=== PATIENT | female | born 1960 | race Caucasian/White ===

== ENCOUNTER 2018-06-03 12:42 | Inpatient (IN) | payer MEDICARE, OTHER ==
[~2018-06-03] VITALS: Ht 167.6 cm; Wt 83.0 kg
[2018-06-03] MEDS ORDERED: HYDROMORPHONE INJ 2 MG/ML DISP.SYRIN IV ONE (13:30)
[2018-06-03 13:32] LABS: BASOPHILS % (AUTO) 0.1 % (0.0-2.0); EOSINOPHILS % (AUTO) 0.1 % (0.0-6.0); HEMATOCRIT 26 % (33-45); HEMOGLOBIN 8.4 g/dL (11.5-14.8); LYMPHOCYTES # (AUTO) 0.8 /CMM (0.8-4.8); LYMPHOCYTES % (AUTO) 3.2 % (20.0-44.0); MEAN CORPUSCULAR HGB CONC 32 g/dl (31.0-36.0); MEAN CORPUSCULAR VOLUME 103 fL (82-100); MONOCYTES # (AUTO) 1.3 /CMM (0.1-1.30); MONOCYTES % (AUTO) 4.8 % (2.0-12.0); NEUTROPHILS # (AUTO) 24.3 /CMM (1.8-8.9); NEUTROPHILS % (AUTO) 91.8 % (43.0-81.0); PLATELET COUNT (AUTO) 274 /CMM (150-450); RED BLOOD CELL COUNT(AUTO) 2.52 MIL/uL (4.0-5.2); WHITE BLOOD COUNT (AUTO) 26.4 K/uL (4.3-11.0)
[2018-06-03] MEDS ORDERED: HYDROMORPHONE 1 MG/1 ML DISP.SYRIN ONE (13:35)
[2018-06-03 13:47] LABS: CALCIUM, SERUM 8.7 mg/dL (8.5-10.1); CREATININE 3.8 mg/dL (0.6-1.3); POTASSIUM 4.7 mmol/L (3.5-5.1)
[2018-06-03 13:58] LABS: BILIRUBIN,DIRECT 0.3 mg/dL (0.0-0.2); BILIRUBIN,TOTAL 0.7 mg/dL (0.2-1.0); TOTAL PROTEIN, SERUM 6.8 g/dL (6.4-8.2)
[2018-06-03] MEDS ORDERED: VANCOMYCIN 1 GM in IV D5W 250 ML IV ONE (14:30)
[2018-06-03 15:05] LABS: APPEARANCE,URINE Cloudy (CLEAR); BILIRUBIN,URINE Negative (NEGATIVE); BLOOD, URINE Small Ery/uL (NEGATIVE); COLOR,URINE Yellow (YELLOW); KETONES,URINE Negative (NEGATIVE); LEUKOCYTE ESTERASE ,URINE Large (NEGATIVE); NITRITE, URINE Negative (NEGATIVE); PROTEIN,URINE 100 mg/dl (NEGATIVE); UGLUCOSE Negative (NEGATIVE); UROBILINOGEN,URINE 0.2 EU/dL (0.2)
[2018-06-03 15:17] LABS: BACTERIA,URINE Moderate /HPF (None Seen); SQUAMOUS EPITHELIAL CELL,UR Few /HPF (None Seen); WBC,URINE 21-50 /HPF (0-3)
[2018-06-03 16:01] LABS: BAND % (MANUAL) 2 % (0.0-5.0); LYMPHOCYTES % (MANUAL) 4 % (16-48); METAMYELOCYTES % 1 % (0-0); MONOCYTES % (MANUAL) 7 % (0-11.0); MYELOCYTES % 1 % (0-0); NEUTROPHILS % (MANUAL) 85 (42-76)
[2018-06-03] MEDS ORDERED: DIVA-78 PO (16:41)
[2018-06-03] MEDS ORDERED: ESOM40CA PO (16:41)
[2018-06-03] MEDS ORDERED: ALLO100T PO (16:41)
[2018-06-03] MEDS ORDERED: CLON0.5T12 PO (16:41)
[2018-06-03] MEDS ORDERED: BUME1TAB4 PO (16:41)
[2018-06-03] MEDS ORDERED: HYDR-4354 PO (16:41)
[2018-06-03] MEDS ORDERED: BENZ1TAB7 PO (16:41)
[2018-06-03] MEDS ORDERED: CHOL50004 PO (16:41)
[2018-06-03] MEDS ORDERED: OLAN10TA3 PO (16:41)
[2018-06-03] MEDS ORDERED: SERT50TA PO (16:41)
[2018-06-03] MEDS ORDERED: HYDR-4076 PO (16:41)
[2018-06-03] MEDS ORDERED: ZOLP5TAB8 PO (16:41)
[2018-06-03] MEDS ORDERED: FOLI1TAB16 PO (16:41)
[2018-06-03] MEDS: hydrALAZINE HCL 25 MG TABLET PO SCH (17:00)
[2018-06-03] MEDS ORDERED: LEVOFLOXACIN 500 MG /D5W 100ML 500 MG in PREMIX 1 EA IV ONE (17:00)
[2018-06-03 17:45] VITALS: BP 118/60
[2018-06-03 18:00] VITALS: BP 119/61
[2018-06-03] MEDS: BUMETANIDE (1 MG) 1 MG TABLET PO SCH (18:18)
[2018-06-03] MEDS: BENZTROPINE MESYLATE (1 MG) 1 MG TABLET PO SCH (18:18)
[2018-06-03] MEDS: DIVALPROEX SODIUM 500 MG TABLET.DR PO SCH (18:19)
[2018-06-03 20:00] VITALS: BP 102/60
[2018-06-03] MEDS: OLANZAPINE 10 MG TABLET PO SCH (21:01)
[2018-06-03] MEDS: ENOXAPARIN SODIUM 30 MG/0.3 ML DISP.SYRIN SQ SCH (21:03)
[2018-06-03] MEDS: ZOLPIDEM TARTRATE 5 MG TABLET PO SCH (22:00)
[2018-06-03] MEDS: ONDANSETRON HCL/PF 4 MG/2 ML VIAL IVP PRN (22:14)
[2018-06-03] MEDS: ACETAMINOPHEN 325 MG TABLET PO PRN (22:55)
[2018-06-04] VITALS (9 sets, daily range): BP systolic 96–117; BP diastolic 53–66
[2018-06-04] MEDS: ACETAMINOPHEN 325 MG TABLET PO PRN (04:56)
[2018-06-04] MEDS: ONDANSETRON HCL/PF 4 MG/2 ML VIAL IVP PRN ×3 (06:00→22:12)
[2018-06-04 06:08] LABS: BASOPHILS % (AUTO) 0.1 % (0.0-2.0); EOSINOPHILS % (AUTO) 0.1 % (0.0-6.0); HEMATOCRIT 21 % (33-45); LYMPHOCYTES # (AUTO) 1.1 /CMM (0.8-4.8); MEAN CORPUSCULAR HGB CONC 32 g/dl (31.0-36.0); MEAN CORPUSCULAR VOLUME 103 fL (82-100); MONOCYTES % (AUTO) 7.1 % (2.0-12.0); NEUTROPHILS # (AUTO) 25.4 /CMM (1.8-8.9); NEUTROPHILS % (AUTO) 88.7 % (43.0-81.0); PLATELET COUNT (AUTO) 215 /CMM (150-450); RED BLOOD CELL COUNT(AUTO) 2.07 MIL/uL (4.0-5.2); WHITE BLOOD COUNT (AUTO) 28.5 K/uL (4.3-11.0)
[2018-06-04 06:14] LABS: HEMOGLOBIN 6.8 g/dL (11.5-14.8)
[2018-06-04 06:55] LABS: CALCIUM, SERUM 8.2 mg/dL (8.5-10.1); CREATININE 3.9 mg/dL (0.6-1.3); POTASSIUM 4.9 mmol/L (3.5-5.1)
[2018-06-04 07:34] LABS: BAND % (MANUAL) 3 % (0.0-5.0); LYMPHOCYTES % (MANUAL) 9 % (16-48); MONOCYTES % (MANUAL) 9 % (0-11.0); NEUTROPHILS % (MANUAL) 79 (42-76)
[2018-06-04] MEDS: hydrALAZINE HCL 25 MG TABLET PO SCH ×2 (09:00→17:00)
[2018-06-04] MEDS: BUMETANIDE (1 MG) 1 MG TABLET PO SCH ×2 (10:11→17:00)
[2018-06-04] MEDS: FOLIC ACID 1 MG TABLET PO SCH (10:11)
[2018-06-04] MEDS: OLANZAPINE 10 MG TABLET PO SCH ×2 (10:11→20:33)
[2018-06-04] MEDS: BENZTROPINE MESYLATE (1 MG) 1 MG TABLET PO SCH ×2 (10:11→17:00)
[2018-06-04] MEDS: ALLOPURINOL 100 MG TABLET PO SCH (10:11)
[2018-06-04] MEDS: DIVALPROEX SODIUM 500 MG TABLET.DR PO SCH ×2 (10:11→17:00)
[2018-06-04] MEDS: SERTRALINE HCL 50 MG TABLET PO SCH (10:14)
[2018-06-04] MEDS ORDERED: Z GUARD REMEDY 2 OZ OINT TP PRN (10:30)
[2018-06-04] MEDS ORDERED: EPOETIN ALFA (10,000 UNIT) 10,000 UNIT/ML VIAL IV ONE (15:00)
[2018-06-04] MEDS: HYDROCODONE/APAP 10/325MG 1 EA TABLET PO PRN ×2 (16:52→20:32)
[2018-06-04] MEDS: Z GUARD REMEDY 2 OZ OINT TP SCH (19:49)
[2018-06-04] MEDS: ENOXAPARIN SODIUM 30 MG/0.3 ML DISP.SYRIN SQ SCH (20:42)
[2018-06-04] MEDS: ZOLPIDEM TARTRATE 5 MG TABLET PO SCH (22:13)
[2018-06-04] MEDS: GUAIFENESIN/D-METHORPHAN HB 5 ML UDC PO PRN (23:03)
[2018-06-05] MEDS: clonazePAM 0.5 MG TABLET PO PRN (02:04)
[2018-06-05] MEDS: HYDROCODONE/APAP 10/325MG 1 EA TABLET PO PRN ×2 (02:19→19:50)
[2018-06-05] MEDS: MINERAL OIL/PETROLATUM,WHITE 120 GM JAR TP PRN ×2 (02:24→05:36)
[2018-06-05] MEDS: GUAIFENESIN/D-METHORPHAN HB 5 ML UDC PO PRN ×2 (05:49→19:51)
[2018-06-05 07:11] LABS: BASOPHILS % (AUTO) 0.1 % (0.0-2.0); EOSINOPHILS % (AUTO) 0.1 % (0.0-6.0); HEMATOCRIT 26 % (33-45); HEMOGLOBIN 8.6 g/dL (11.5-14.8); LYMPHOCYTES # (AUTO) 1.2 /CMM (0.8-4.8); LYMPHOCYTES % (AUTO) 4.4 % (20.0-44.0); MEAN CORPUSCULAR HGB CONC 33 g/dl (31.0-36.0); MEAN CORPUSCULAR VOLUME 96 fL (82-100); MONOCYTES # (AUTO) 1.7 /CMM (0.1-1.30); MONOCYTES % (AUTO) 6.2 % (2.0-12.0); NEUTROPHILS # (AUTO) 24.6 /CMM (1.8-8.9); NEUTROPHILS % (AUTO) 89.2 % (43.0-81.0); PLATELET COUNT (AUTO) 206 /CMM (150-450); RED BLOOD CELL COUNT(AUTO) 2.72 MIL/uL (4.0-5.2); WHITE BLOOD COUNT (AUTO) 27.6 K/uL (4.3-11.0)
[2018-06-05 07:51] LABS: CALCIUM, SERUM 8.1 mg/dL (8.5-10.1); CREATININE 3.2 mg/dL (0.6-1.3); MAGNESIUM 1.6 mg/dL (1.8-2.4); POTASSIUM 4.7 mmol/L (3.5-5.1)
[2018-06-05 07:59] LABS: BAND % (MANUAL) 5 % (0.0-5.0); LYMPHOCYTES % (MANUAL) 2 % (16-48); MONOCYTES % (MANUAL) 7 % (0-11.0); NEUTROPHILS % (MANUAL) 86 (42-76)
[2018-06-05] MEDS: ALLOPURINOL 100 MG TABLET PO SCH (09:00)
[2018-06-05] MEDS: DIVALPROEX SODIUM 500 MG TABLET.DR PO SCH ×2 (09:00→18:27)
[2018-06-05] MEDS: OLANZAPINE 10 MG TABLET PO SCH ×2 (09:00→20:52)
[2018-06-05] MEDS: BENZTROPINE MESYLATE (1 MG) 1 MG TABLET PO SCH ×2 (09:00→18:27)
[2018-06-05] MEDS: hydrALAZINE HCL 25 MG TABLET PO SCH ×2 (09:00→18:28)
[2018-06-05] MEDS: BUMETANIDE (1 MG) 1 MG TABLET PO SCH ×2 (09:00→18:28)
[2018-06-05] MEDS: FOLIC ACID 1 MG TABLET PO SCH (09:00)
[2018-06-05] MEDS: Z GUARD REMEDY 2 OZ OINT TP SCH (09:00)
[2018-06-05] MEDS: SERTRALINE HCL 50 MG TABLET PO SCH (09:00)
[2018-06-05] MEDS ORDERED: LEVOFLOXACIN 250 MG /D5W 50 ML 250 MG in PREMIX 1 EA IV SCH (17:00)
[2018-06-05] MEDS: CEFTRIAXONE 1 G in IV D5W 50 ML IV SCH (18:28)
[2018-06-05 20:00] VITALS: BP 108/56
[2018-06-05 20:48] VITALS: BP 108/56
[2018-06-05] MEDS: ENOXAPARIN SODIUM 30 MG/0.3 ML DISP.SYRIN SQ SCH (20:53)
[2018-06-05] MEDS: ZOLPIDEM TARTRATE 5 MG TABLET PO SCH (22:12)
[2018-06-06] MEDS: ONDANSETRON HCL/PF 4 MG/2 ML VIAL IVP PRN (04:58)
[2018-06-06] MEDS: HYDROCODONE/APAP 10/325MG 1 EA TABLET PO PRN ×3 (05:12→19:03)
[2018-06-06 07:04] LABS: CALCIUM, SERUM 8.3 mg/dL (8.5-10.1); CREATININE 3.4 mg/dL (0.6-1.3); MAGNESIUM 1.5 mg/dL (1.8-2.4); POTASSIUM 5.1 mmol/L (3.5-5.1)
[2018-06-06 07:07] LABS: BASOPHILS % (AUTO) 0.2 % (0.0-2.0); EOSINOPHILS % (AUTO) 0.1 % (0.0-6.0); HEMATOCRIT 25 % (33-45); HEMOGLOBIN 8.3 g/dL (11.5-14.8); LYMPHOCYTES # (AUTO) 0.9 /CMM (0.8-4.8); LYMPHOCYTES % (AUTO) 3.5 % (20.0-44.0); MEAN CORPUSCULAR HGB CONC 33 g/dl (31.0-36.0); MEAN CORPUSCULAR VOLUME 96 fL (82-100); MONOCYTES # (AUTO) 1.6 /CMM (0.1-1.30); MONOCYTES % (AUTO) 6.3 % (2.0-12.0); NEUTROPHILS # (AUTO) 22.7 /CMM (1.8-8.9); NEUTROPHILS % (AUTO) 89.9 % (43.0-81.0); PLATELET COUNT (AUTO) 210 /CMM (150-450); WHITE BLOOD COUNT (AUTO) 25.3 K/uL (4.3-11.0)
[2018-06-06 08:08] LABS: BAND % (MANUAL) 3 % (0.0-5.0); LYMPHOCYTES % (MANUAL) 8 % (16-48); MONOCYTES % (MANUAL) 10 % (0-11.0); NEUTROPHILS % (MANUAL) 79 (42-76)
[2018-06-06] MEDS: hydrALAZINE HCL 25 MG TABLET PO SCH ×2 (09:00→17:00)
[2018-06-06] MEDS: BENZTROPINE MESYLATE (1 MG) 1 MG TABLET PO SCH ×2 (10:30→17:52)
[2018-06-06] MEDS: FOLIC ACID 1 MG TABLET PO SCH (10:30)
[2018-06-06] MEDS: ALLOPURINOL 100 MG TABLET PO SCH (10:30)
[2018-06-06] MEDS: SERTRALINE HCL 50 MG TABLET PO SCH (10:30)
[2018-06-06] MEDS: BUMETANIDE (1 MG) 1 MG TABLET PO SCH ×2 (10:31→17:51)
[2018-06-06] MEDS: OLANZAPINE 10 MG TABLET PO SCH ×2 (10:31→20:52)
[2018-06-06] MEDS: DIVALPROEX SODIUM 500 MG TABLET.DR PO SCH ×2 (10:33→17:51)
[2018-06-06] MEDS: Magnesium 1GM/D5W 100ML PREMIX 100 ML IV SCH ×2 (14:24→16:55)
[2018-06-06] MEDS: CEFTRIAXONE 1 G in IV D5W 50 ML IV SCH (17:54)
[2018-06-06] MEDS: Z GUARD REMEDY 2 OZ OINT TP SCH (18:00)
[2018-06-06 19:54] VITALS: BP 106/58
[2018-06-06 20:00] VITALS: BP 106/58
[2018-06-06] MEDS: ENOXAPARIN SODIUM 30 MG/0.3 ML DISP.SYRIN SQ SCH (20:53)
[2018-06-06] MEDS: GUAIFENESIN/D-METHORPHAN HB 5 ML UDC PO PRN (20:59)
[2018-06-06] MEDS: ZOLPIDEM TARTRATE 5 MG TABLET PO SCH (22:03)
[2018-06-07] MEDS: clonazePAM 0.5 MG TABLET PO PRN (02:30)
[2018-06-07] MEDS: HYDROCODONE/APAP 10/325MG 1 EA TABLET PO PRN ×3 (03:30→14:41)
[2018-06-07 06:49] LABS: BASOPHILS # (AUTO) 0.1 /CMM (0.0-0.2); BASOPHILS % (AUTO) 0.4 % (0.0-2.0); CREATININE 2.9 mg/dL (0.6-1.3); EOSINOPHILS % (AUTO) 0.2 % (0.0-6.0); HEMATOCRIT 25 % (33-45); LYMPHOCYTES # (AUTO) 1.4 /CMM (0.8-4.8); LYMPHOCYTES % (AUTO) 6.2 % (20.0-44.0); MAGNESIUM 1.9 mg/dL (1.8-2.4); MEAN CORPUSCULAR HGB CONC 32 g/dl (31.0-36.0); MEAN CORPUSCULAR VOLUME 99 fL (82-100); MONOCYTES # (AUTO) 1.9 /CMM (0.1-1.30); MONOCYTES % (AUTO) 8.4 % (2.0-12.0); NEUTROPHILS # (AUTO) 19.2 /CMM (1.8-8.9); NEUTROPHILS % (AUTO) 84.8 % (43.0-81.0); PLATELET COUNT (AUTO) 230 /CMM (150-450); POTASSIUM 5.1 mmol/L (3.5-5.1); RED BLOOD CELL COUNT(AUTO) 2.49 MIL/uL (4.0-5.2); WHITE BLOOD COUNT (AUTO) 22.6 K/uL (4.3-11.0)
[2018-06-07] MEDS: BUMETANIDE (1 MG) 1 MG TABLET PO SCH ×2 (08:45→16:09)
[2018-06-07] MEDS: SERTRALINE HCL 50 MG TABLET PO SCH (08:45)
[2018-06-07] MEDS: ALLOPURINOL 100 MG TABLET PO SCH (08:45)
[2018-06-07] MEDS: FOLIC ACID 1 MG TABLET PO SCH (08:45)
[2018-06-07] MEDS: BENZTROPINE MESYLATE (1 MG) 1 MG TABLET PO SCH ×2 (08:45→16:09)
[2018-06-07] MEDS: DIVALPROEX SODIUM 500 MG TABLET.DR PO SCH ×2 (08:45→16:09)
[2018-06-07] MEDS: OLANZAPINE 10 MG TABLET PO SCH (08:45)
[2018-06-07] MEDS: hydrALAZINE HCL 25 MG TABLET PO SCH ×2 (08:51→17:00)
[2018-06-07] MEDS: Z GUARD REMEDY 2 OZ OINT TP SCH (08:51)
[2018-06-07] MEDS: GUAIFENESIN/D-METHORPHAN HB 5 ML UDC PO PRN (13:46)
[2018-06-07 17:00] VITALS: BP 106/64
[2018-06-07] MEDS: CEFTRIAXONE 1 G in IV D5W 50 ML IV SCH (17:33)
== END 2018-06-07 18:28 | DRG 871 ==
LOC: ER 12:44 → TELE 15:39 → MED 23:54
PROVIDERS: ADMIT Legal Medicine; ATTEND Legal Medicine
PROC: 30233N1 Transfusion of Nonautologous Red Blood Cells into Peripheral Vein, Percutaneous Approach (ICD-10-PCS; principal; 2018-06-04)
PROC: 5A1D70Z Performance of Urinary Filtration, Intermittent, Less than 6 Hours Per Day (ICD-10-PCS; 2018-06-04)
PROC: 5A1D70Z Performance of Urinary Filtration, Intermittent, Less than 6 Hours Per Day (ICD-10-PCS; 2018-06-06)
DX: A41.9 Sepsis, unspecified organism (principal); N18.6 End stage renal disease; I12.0 Hypertensive chronic kidney disease with stage 5 chronic kidney disease or end stage renal disease; N39.0 Urinary tract infection, site not specified; E87.1 Hypo-osmolality and hyponatremia; D64.9 Anemia, unspecified; F17.200 Nicotine dependence, unspecified, uncomplicated; F31.9 Bipolar disorder, unspecified; J44.9 Chronic obstructive pulmonary disease, unspecified; B96.20 Unspecified Escherichia coli [E. coli] as the cause of diseases classified elsewhere; R55 Syncope and collapse; Z99.2 Dependence on renal dialysis; W19.XXXA Unspecified fall, initial encounter; Y93.9 Activity, unspecified; Y92.129 Unspecified place in nursing home as the place of occurrence of the external cause
CPT/HCPCS: 36415; 71045-TC; 72125-TC; 72131-TC; 73060-TC; 80048-TC; 80076-TC; 81000-TC; 83605-TC; 83690-TC; 83735-TC; 85025-TC; 86850-TC; 86921-TC; 87040-TC; 87081-TC; 87086-TC; 87186-TC; 90935-TC; 97110-TC; 97116-TC; 97530-TC; A4216; G0378; J0696; J0885; J1170; J1650; J1956; J2405; J3370; J3475; J7030; J7060; P9016-BL

== ENCOUNTER 2024-02-09 19:49 | Emergency (ER) | payer MEDICARE, OTHER ==
[~2024-02-09] VITALS: Ht 167.6 cm; Wt 60.3 kg
[~2024-02-09 19:49] MED LIST: ALLO100T PO; BENZ1TAB7 PO; BUME1TAB8 PO; CHOL50004 PO; CLON0.5T4 PO; DIVA-78 PO; ESOM40CA PO; FOLI1TAB16 PO; HYDR-4076 PO; HYDR-4354 PO; OLAN10TA3 PO; SERT50TA PO; ZOLP5TAB8 PO
[2024-02-09 21:34] LABS: BASOPHILS # (AUTO) 0.1 K/uL (0.0-0.2); BASOPHILS % (AUTO) 0.9 % (0.0-2.0); CALCIUM, SERUM 8.7 mg/dL (8.5-10.1); CREATININE 3.3 mg/dL (0.6-1.3); EOSINOPHILS # (AUTO) 0.4 K/uL (0.0-0.7); EOSINOPHILS % (AUTO) 5.6 % (0.0-6.0); HEMATOCRIT 40 % (33-45); HEMOGLOBIN 12.9 g/dL (11.5-14.8); LYMPHOCYTES # (AUTO) 1.4 K/uL (0.8-4.8); MEAN CORPUSCULAR HEMOGLOBIN 34 PG (26.0-33.0); MEAN CORPUSCULAR HGB CONC 32 g/dl (31.0-36.0); MEAN CORPUSCULAR VOLUME 105 fL (82-100); MONOCYTES # (AUTO) 0.6 K/uL (0.1-1.30); MONOCYTES % (AUTO) 8.4 % (2.0-12.0); NEUTROPHILS # (AUTO) 4.3 K/uL (1.8-8.9); NEUTROPHILS % (AUTO) 64.1 % (43.0-81.0); PLATELET COUNT (AUTO) 168 K/uL (150-450); POTASSIUM 4.5 mmol/L (3.5-5.1); RED BLOOD CELL COUNT(AUTO) 3.82 MIL/uL (4.0-5.2); RED CELL DISTRIBUTION WIDTH 19.7 % (11.5-15.0); WHITE BLOOD COUNT (AUTO) 6.8 K/uL (4.3-11.0)
[2024-02-09 21:35] LABS: C-REACTIVE PROTEIN 2.32 mg/dL (0.0-0.30)
[2024-02-09 21:37] LABS: ERYTHROCYTE SEDIMENTATION RATE 53 MM/HR (0-30)
[2024-02-09] MEDS: CEFTRIAXONE 1 G in IV D5W 50 ML IV ONE (22:00)
[2024-02-09] MEDS ORDERED: CEFTRIAXONE 1GM BAG (ER ONLY) 50 ML IV ONE (22:16)
[2024-02-09] MEDS ORDERED: ONDANSETRON HCL/PF 4 MG/2 ML VIAL IVP PRN (22:30)
[2024-02-09] MEDS ORDERED: ACETAMINOPHEN 325 MG TABLET PO PRN (22:30)
[2024-02-09] MEDS ORDERED: HYDROCODONE/APAP 5/325MG TABLET PO PRN (22:30)
[2024-02-09] MEDS ORDERED: Z GUARD REMEDY 4 OZ OINT TP PRN (22:30)
[2024-02-09] MEDS ORDERED: MAGNESIUM HYDROXIDE 30 ML UDC PO PRN (22:30)
[2024-02-09] MEDS ORDERED: MAG HYDROX/AL HYDROX/SIMETH 30 ML UDC PO PRN (22:30)
[2024-02-09] MEDS ORDERED: ZOLPIDEM TARTRATE 5 MG TABLET PO PRN (22:30)
[2024-02-09 23:28] VITALS: BP 120/63; TEMP 99; O2SAT 93
[2024-02-10] MEDS ORDERED: CLINDAMYCIN HCL 150 MG CAPSULE PO ONE (09:00)
[2024-02-10] MEDS ORDERED: MIDO10TA PO (11:12)
[2024-02-10] MEDS ORDERED: DIPH25TA23 PO (11:12)
[2024-02-10] MEDS ORDERED: CALC-343 PO (11:12)
[2024-02-10] MEDS ORDERED: SODI10PO PO (11:12)
[2024-02-10] MEDS ORDERED: OLAN10TA3 PO (11:12)
[2024-02-10] MEDS ORDERED: DOCU100T2 PO (11:12)
[2024-02-10] MEDS ORDERED: LORA10TA7 PO (11:12)
[2024-02-10] MEDS ORDERED: FLUP5TAB14 PO ×2 (11:12)
[2024-02-10] MEDS ORDERED: CLOP75TA15 PO (11:12)
[2024-02-10] MEDS ORDERED: HYDR-4303 PO (11:12)
[2024-02-10] MEDS ORDERED: MIDO5TAB4 PO (11:12)
== END 2024-02-09 23:29 ==
LOC: ER 19:55
DX: L08.9 Local infection of the skin and subcutaneous tissue, unspecified (principal); I13.2 Hypertensive heart and chronic kidney disease with heart failure and with stage 5 chronic kidney disease, or end stage renal disease; N18.6 End stage renal disease; I50.32 Chronic diastolic (congestive) heart failure; M79.605 Pain in left leg; F41.9 Anxiety disorder, unspecified; J44.9 Chronic obstructive pulmonary disease, unspecified; F31.9 Bipolar disorder, unspecified; F20.9 Schizophrenia, unspecified; E87.1 Hypo-osmolality and hyponatremia; D68.59 Other primary thrombophilia; Z99.2 Dependence on renal dialysis; Z79.899 Other long term (current) drug therapy; Z88.0 Allergy status to penicillin; Z88.5 Allergy status to narcotic agent
CPT/HCPCS: 99285; 93970; 96365; 85025; 80048; 85652; 36415; 86140; J0696 ×2; J7060; A6407

== ENCOUNTER 2024-02-10 09:44 | Inpatient (IN) | payer MEDICARE, OTHER ==
[~2024-02-10] VITALS: Ht 167.6 cm; Wt 67.4 kg
[2024-02-10] MEDS ORDERED: MORPHINE SULFATE INJ 4 MG/ML DISP.SYRIN ONE (10:32)
[2024-02-10] MEDS ORDERED: ONDANSETRON HCL/PF 4 MG/2 ML VIAL ONE (10:32)
[2024-02-10] MEDS: IV NS 0.9% 1,000 ML BAG IV ONE (10:47)
[2024-02-10] MEDS: ONDANSETRON HCL/PF 4 MG/2 ML VIAL IVP ONE (10:50)
[2024-02-10 10:51] LABS: BASOPHILS % (AUTO) 0.5 % (0.0-2.0); EOSINOPHILS # (AUTO) 0.4 K/uL (0.0-0.7); EOSINOPHILS % (AUTO) 5.4 % (0.0-6.0); HEMATOCRIT 39 % (33-45); HEMOGLOBIN 12.8 g/dL (11.5-14.8); LYMPHOCYTES # (AUTO) 1.9 K/uL (0.8-4.8); LYMPHOCYTES % (AUTO) 24.9 % (20.0-44.0); MEAN CORPUSCULAR HEMOGLOBIN 35 PG (26.0-33.0); MEAN CORPUSCULAR HGB CONC 33 g/dl (31.0-36.0); MEAN CORPUSCULAR VOLUME 105 fL (82-100); MONOCYTES # (AUTO) 0.7 K/uL (0.1-1.30); MONOCYTES % (AUTO) 9.3 % (2.0-12.0); NEUTROPHILS # (AUTO) 4.6 K/uL (1.8-8.9); NEUTROPHILS % (AUTO) 59.9 % (43.0-81.0); PLATELET COUNT (AUTO) 178 K/uL (150-450); WHITE BLOOD COUNT (AUTO) 7.7 K/uL (4.3-11.0)
[2024-02-10] MEDS: MORPHINE SULFATE INJ 2 MG/ML DISP.SYRIN IV ONE (10:55)
[2024-02-10 11:08] LABS: ALBUMIN 2.6 g/dL (3.4-5.0); BILIRUBIN,DIRECT 0.1 mg/dL (0.0-0.2); BILIRUBIN,TOTAL 0.3 mg/dL (0.2-1.0); CALCIUM, SERUM 9.1 mg/dL (8.5-10.1); POTASSIUM 5.2 mmol/L (3.5-5.1); TOTAL PROTEIN, SERUM 7.1 g/dL (6.4-8.2)
[2024-02-10 11:10] LABS: INR 1.02 (0.91-1.10); PARTIAL THROMBOPLASTIN TIME 31.8 SEC (24.3-34.3); PROTHROMBIN TIME 10.8 SECS (9.2-11.1)
[2024-02-10] MEDS: CEFEPIME 1 GM in IV D5W 50 ML IV ONE (11:10)
[2024-02-10] MEDS ORDERED: DIPH25TA23 PO (11:12)
[2024-02-10] MEDS ORDERED: LORA10TA7 PO (11:12)
[2024-02-10] MEDS ORDERED: HYDR-4303 PO (11:12)
[2024-02-10] MEDS ORDERED: MIDO5TAB4 PO (11:12)
[2024-02-10] MEDS ORDERED: OLAN10TA3 PO (11:12)
[2024-02-10] MEDS ORDERED: CLOP75TA15 PO (11:12)
[2024-02-10] MEDS ORDERED: CALC-343 PO (11:12)
[2024-02-10] MEDS ORDERED: FLUP5TAB14 PO ×2 (11:12)
[2024-02-10] MEDS ORDERED: SODI10PO PO (11:12)
[2024-02-10] MEDS ORDERED: DOCU100T2 PO (11:12)
[2024-02-10] MEDS ORDERED: MIDO10TA PO (11:12)
[2024-02-10] MEDS: VANCOMYCIN 1 GM in IV D5W 250 ML IV ONE (11:55)
[2024-02-10 13:30] VITALS: BP 131/75; TEMP 98.2; O2SAT 94
[2024-02-10] MEDS ORDERED: ONDANSETRON HCL/PF 4 MG/2 ML VIAL IVP PRN (14:00)
[2024-02-10] MEDS ORDERED: OLANZAPINE 10 MG TABLET PO PRN (14:00)
[2024-02-10] MEDS ORDERED: FLUPHENAZINE HCL 5 MG TABLET PO PRN (14:00)
[2024-02-10 16:00] VITALS: BP 134/79; TEMP 98.2; O2SAT 95
[2024-02-10] MEDS: DIVALPROEX SODIUM 500 MG TABLET.DR PO SCH (16:55)
[2024-02-10] MEDS: BENZTROPINE MESYLATE (1 MG) 1 MG TABLET PO SCH (16:55)
[2024-02-10] MEDS: BUMETANIDE (1 MG) 1 MG TABLET PO SCH (16:55)
[2024-02-10] MEDS: OLANZAPINE 10 MG TABLET PO SCH (17:04)
[2024-02-10] MEDS: CALCIUM CARBONATE 500 MG TAB.CHEW PO SCH (17:04)
[2024-02-10] MEDS: FLUPHENAZINE HCL 5 MG TABLET PO SCH (17:06)
[2024-02-10] MEDS: HYDROCODONE/APAP 5/325MG TABLET PO PRN (17:16)
[2024-02-10 21:16] VITALS: BP 103/92; TEMP 98.2; O2SAT 94
[2024-02-10] MEDS: ZOLPIDEM TARTRATE 5 MG TABLET PO SCH (22:00)
[2024-02-11 06:29] LABS: BASOPHILS % (AUTO) 0.3 % (0.0-2.0); EOSINOPHILS # (AUTO) 0.4 K/uL (0.0-0.7); EOSINOPHILS % (AUTO) 6.7 % (0.0-6.0); HEMATOCRIT 38 % (33-45); HEMOGLOBIN 12.4 g/dL (11.5-14.8); LYMPHOCYTES # (AUTO) 1.7 K/uL (0.8-4.8); LYMPHOCYTES % (AUTO) 26.3 % (20.0-44.0); MEAN CORPUSCULAR HEMOGLOBIN 34 PG (26.0-33.0); MEAN CORPUSCULAR HGB CONC 33 g/dl (31.0-36.0); MEAN CORPUSCULAR VOLUME 106 fL (82-100); MONOCYTES # (AUTO) 0.6 K/uL (0.1-1.30); MONOCYTES % (AUTO) 10.2 % (2.0-12.0); NEUTROPHILS # (AUTO) 3.5 K/uL (1.8-8.9); NEUTROPHILS % (AUTO) 56.5 % (43.0-81.0); PLATELET COUNT (AUTO) 163 K/uL (150-450); RED BLOOD CELL COUNT(AUTO) 3.61 MIL/uL (4.0-5.2); RED CELL DISTRIBUTION WIDTH 19.8 % (11.5-15.0); WHITE BLOOD COUNT (AUTO) 6.3 K/uL (4.3-11.0)
[2024-02-11 07:13] LABS: CALCIUM, SERUM 8.7 mg/dL (8.5-10.1); CREATININE 5.1 mg/dL (0.6-1.3); MAGNESIUM 2.3 mg/dL (1.8-2.4); PHOSPHORUS 7.3 mg/dL (2.5-4.9); POTASSIUM 6.1 mmol/L (3.5-5.1)
[2024-02-11 07:30] VITALS: BP 128/67; TEMP 98.2; O2SAT 90
[2024-02-11] MEDS: FOLIC ACID 1 MG TABLET PO SCH (08:23)
[2024-02-11] MEDS: LORATADINE 10 MG TABLET PO SCH (08:23)
[2024-02-11] MEDS: DOCUSATE SODIUM 100 MG CAPSULE PO SCH (08:23)
[2024-02-11] MEDS: CLOPIDOGREL BISULFATE 75 MG TABLET PO SCH (08:23)
[2024-02-11] MEDS: CLOTRIMAZOLE/BETAMETASONE DIPROPIONATE 15 GM TUBE TP SCH (11:16)
[2024-02-11] MEDS: Z GUARD REMEDY 4 OZ OINT TP SCH (11:17)
[2024-02-11] MEDS: CEFEPIME 1 GM in IV D5W 50 ML IV SCH (11:19)
[2024-02-11] MEDS: ALBUMIN 25% 25 GM in PREMIX 1 EA IV PRN (14:52)
[2024-02-11 16:31] VITALS: BP 90/62; TEMP 97.3; O2SAT 97
[2024-02-11] MEDS: FLUPHENAZINE HCL 10 MG TABLET PO SCH (17:01)
[2024-02-11 20:00] VITALS: BP 109/71; TEMP 98.1; O2SAT 95
[2024-02-12 07:34] LABS: CALCIUM, SERUM 9.3 mg/dL (8.5-10.1); CREATININE 4.1 mg/dL (0.6-1.3); POTASSIUM 5.4 mmol/L (3.5-5.1)
[2024-02-12 08:00] VITALS: BP 137/86; TEMP 97.9; O2SAT 96
[2024-02-12] MEDS: Z GUARD REMEDY 4 OZ OINT TP PRN (08:55)
[2024-02-12 09:09] LABS: HEPATITIS B SURFACE AB Reactive (.)
[2024-02-12 20:00] VITALS: BP 130/80; TEMP 97.8; O2SAT 96
[2024-02-13 06:38] LABS: CALCIUM, SERUM 9.6 mg/dL (8.5-10.1); POTASSIUM 6.1 mmol/L (3.5-5.1)
[2024-02-13 07:00] VITALS: BP 138/75; TEMP 99.5; O2SAT 93
[2024-02-13] MEDS: ACETAMINOPHEN 325 MG TABLET PO PRN (08:23)
[2024-02-13] MEDS: ALBUTEROL FS 2.5 MG/0.5 ML VIAL.NEB NEB PRN (13:57)
[2024-02-13 13:58] VITALS: O2SAT 93
[2024-02-13 14:12] VITALS: O2SAT 100
[2024-02-13 16:00] VITALS: BP 154/90; TEMP 99.7; O2SAT 91
[2024-02-14 00:20] VITALS: BP 113/69; TEMP 98.6; O2SAT 100
[2024-02-14 07:18] LABS: CREATININE 3.6 mg/dL (0.6-1.3); POTASSIUM 4.7 mmol/L (3.5-5.1)
[2024-02-14] MEDS ORDERED: CLIN300C12 PO (12:20)
[2024-02-14] MEDS: clonazePAM 0.5 MG TABLET PO PRN (15:38)
[2024-02-14 20:00] VITALS: BP 114/69; TEMP 98.6; O2SAT 94
[2024-02-15] MEDS: MORPHINE SULFATE INJ 2 MG/ML DISP.SYRIN IV PRN (03:57)
[2024-02-15 05:54] VITALS: O2SAT 98
[2024-02-15 08:00] VITALS: BP 120/77; TEMP 98.4; O2SAT 94
[2024-02-15] MEDS: VANCOMYCIN POST DIALYSIS 500MG IV PRN (11:12)
[2024-02-15 14:22] LABS: CALCIUM, SERUM 8.9 mg/dL (8.5-10.1); CREATININE 3.9 mg/dL (0.6-1.3); POTASSIUM 4.7 mmol/L (3.5-5.1)
== END 2024-02-15 16:03 | DRG 602 ==
LOC: ER 09:44 → MED 12:54
PROVIDERS: ADMIT Nurse Practitioner Acute Care; ATTEND Internal Medicine
PROC: 5A1D70Z Performance of Urinary Filtration, Intermittent, Less than 6 Hours Per Day (ICD-10-PCS; principal; 2024-02-11)
DX: L03.115 Cellulitis of right lower limb (principal); N18.6 End stage renal disease; I13.2 Hypertensive heart and chronic kidney disease with heart failure and with stage 5 chronic kidney disease, or end stage renal disease; E44.0 Moderate protein-calorie malnutrition; I50.9 Heart failure, unspecified; E88.09 Other disorders of plasma-protein metabolism, not elsewhere classified; Z99.2 Dependence on renal dialysis; F31.9 Bipolar disorder, unspecified; I95.3 Hypotension of hemodialysis; S81.811A Laceration without foreign body, right lower leg, initial encounter; Z88.0 Allergy status to penicillin; E87.5 Hyperkalemia; D63.1 Anemia in chronic kidney disease; S31.829A Unspecified open wound of left buttock, initial encounter; S31.819A Unspecified open wound of right buttock, initial encounter; X58.XXXA Exposure to other specified factors, initial encounter; Y93.9 Activity, unspecified; Y92.129 Unspecified place in nursing home as the place of occurrence of the external cause; I89.0 Lymphedema, not elsewhere classified; Z96.641 Presence of right artificial hip joint; Z68.24 Body mass index [BMI] 24.0-24.9, adult
CPT/HCPCS: 36415; 73501; 80048-TC; 80076-TC; 80202-TC; 83605-TC; 83735-TC; 84100-TC; 84484-TC; 85025-TC; 85652-TC; 85730-TC; 86140-TC; 86706; 87040-TC; 87081-TC; 87340; 90935-TC; 93970-TC; 94799-TC; 97110-TC; 97530-TC; A4216; A4223; A6253; G0378; J0692; J2270; J2405; J3370; J7030; J7050; J7060; P9047